=== PATIENT | male | born 1995 | race African-American/Black ===

== ENCOUNTER 2016-06-23 14:36 | Emergency (ER) | payer MEDICAID ==
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
== END 2016-06-23 16:55 | disposition home or self-care (01) ==
LOC: M ED 14:36
DX: S00.83XA Contusion of other part of head, initial encounter (principal); Y04.0XXA Assault by unarmed brawl or fight, initial encounter; Y92.019 Unspecified place in single-family (private) house as the place of occurrence of the external cause; Y93.89 Activity, other specified; Y99.8 Other external cause status; F17.210 Nicotine dependence, cigarettes, uncomplicated

== ENCOUNTER 2018-02-24 19:10 | Emergency (ER) | payer SELFPAY ==
[2018-02-24] MEDS: CEPHALEXIN 500 MG CAP PO (22:33)
[2018-02-24] MEDS: ACETAMINOPHEN 325 MG TAB PO (22:34)
[2018-02-24] MEDS: dexameTHASONE 20 MG/5 ML VIAL (J1100) IM (22:36)
[2018-02-25] MEDS: AcetaZOLAMIDE 250 MG TAB PO (00:45)
== END 2018-02-25 00:50 | disposition home or self-care (01) ==
LOC: M ED 02-25 00:50
DX: J03.90 Acute tonsillitis, unspecified (principal); R50.9 Fever, unspecified; H40.9 Unspecified glaucoma
CPT/HCPCS: J1100

== ENCOUNTER → 2021-02-22 | Outpatient (REF) ==
[~2021-02-22] MED LIST: ACET250T2 PO; KEFL500C17 PO
== END ==
LOC: M EMP 13:56
PROVIDERS: ATTEND Family Medicine
DX: Z11.52 Encounter for screening for COVID-19 (principal)

== ENCOUNTER → 2021-04-19 | Outpatient (REF) ==
[2021-04-19 15:05] LABS: RSV AMPLIFICATION NEGATIVE (NEGATIVE)
== END ==
LOC: M EMP 14:04
PROVIDERS: ATTEND Family Medicine
DX: Z11.52 Encounter for screening for COVID-19 (principal); Z20.822 Contact with and (suspected) exposure to COVID-19

== ENCOUNTER → 2021-10-06 | Outpatient (REF) | LOC: M EMP 13:43 | PROVIDERS: ATTEND Family Medicine | DX: Z20.822 Contact with and (suspected) exposure to COVID-19 (principal); Z11.52 Encounter for screening for COVID-19 ==